=== PATIENT | female | born 1945 ===

== ENCOUNTER 2018-03-05 17:52 | Emergency (ER) | payer MEDICARE, OTHER ==
[2018-03-05] MEDS ORDERED: Albuterol-Ipratrop 3 mg / 0.5 (3 ml) UD INH STA (18:29)
[2018-03-05] MEDS ORDERED: guaiFENesin 200 mg/10 ml Syrup UD PO STA (18:29)
[2018-03-05 18:55] LABS: BASO % 0.5 % (0.0-2.0); EOS # 0.6 K/uL (0.0-0.7); EOS % 7.5 % (0.0-4.0); HEMOGLOBIN 13.2 g/dL (12.0-16.0); LYMPH # 1.7 K/uL (1.0-4.3); LYMPH % 22.5 % (20.0-40.0); MEAN CELL VOLUME 90.8 fl (81.0-99.0); MEAN CORPUSCULAR HEMOGLOBIN 30.4 pg (27.0-31.0); MEAN CORPUSCULAR HGB CONC 33.4 g/dL (33.0-37.0); MEAN PLATELET VOLUME 9.9 fl (7.2-11.7); MONO # 0.7 K/uL (0.0-0.8); MONO % 9.6 % (0.0-10.0); NEUT # 4.5 K/uL (1.8-7.0); NEUT % 59.9 % (50.0-75.0); RBC 4.35 Mil/uL (3.80-5.20); WHITE BLOOD COUNT 7.5 K/uL (4.8-10.8)
[2018-03-05] MEDS ORDERED: guaiFENesin 100 mg/5 ml Syrup UD ONE (19:00)
[2018-03-05] MEDS ORDERED: Albuterol-Ipratrop 3 mg / 0.5 (3 ml) UD ONE (19:01)
--- NOTE | 2018-03-05 19:06 | ED PDOC ---
HPI: CCC, URI, Sore Throat Time Seen by Provider: 03/05/18 18:00 Chief Complaint (Nursing): Headache Chief Complaint (Provider): Cough History Per: Patient, Family (daughter at bedside) History/Exam Limitations: no limitations Onset/Duration Of Symptoms: Days (x5) Current Symptoms Are (Timing): Still Present Additional Complaint(s): 73 year old female arrives to ED with daughter for an evaluation for wet cough, chills, and congestion ongoing for 5 days. She additionally reports a posterior headache (none now) and worsening bodyaches for the last 2 days. Daughter reports patient returned from [facility] on 02/16/18 but had no symptoms at the time. Patient denies any fever, chest pain, abdominal pain, nausea, vomiting, diarrhea or recent sick contacts. She reports taking OTC remedies but no medication taken today for relief. PMD: Dr. Otis Sanches Past Medical History Reviewed: Historical Data, Nursing Documentation, Vital Signs Vital Signs: Last Vital Signs Temp 98.6 F 03/05/18 19:47 Pulse 135 H 03/05/18 19:47 Resp 19 03/05/18 19:47 BP 135/59 L 03/05/18 19:47 Pulse Ox 97 03/05/18 19:50 - Medical History PMH: No Chronic Diseases - Surgical History Surgical History: Appendectomy - Family History Family History: States: Unknown Family Hx - Social History Current smoker - smoking cessation education provided: Yes (6-8 cigarettes/daily ) Alcohol: None Drugs: Denies - Home Medications Home Medications: Ambulatory Orders Medication Instructions Recorded Albuterol HFA [Ventolin HFA 90 2 puff IH [id number] #1 puff 11/28/16 mcg/actuation (8 g)] Azithromycin [Z-Bryson] 250 mg PO DAILY #6 tab 11/28/16 Cyclobenzaprine [Cyclobenzaprine 10 mg PO BID #15 tab 11/28/16 HCl] Ibuprofen [Motrin Tab] 600 mg PO Q6 #30 tab 11/28/16 Acetaminophen [Acetaminophen 8 650 mg PO Q8 PRN #21 tablet.er 03/05/18 Hour] Albuterol Sulfate [Ventolin Hfa] 1 puff IH Q4 #1 each 03/05/18 Azithromycin [Z-Bryson] 250 mg PO DAILY #6 tab 03/05/18 Benzonatate [Tessalon Perle] 100 mg PO Q8 PRN #21 capsule 03/05/18 - Allergies Allergies/Adverse Reactions: Allergies Allergy/AdvReac Type Severity Reaction Status Date / Time FISH Allergy ITCHING Verified 03/05/18 17:56 pineapple Allergy ITCHING Verified 03/05/18 17:56 Review of Systems ROS Statement: Except As Marked, All Systems Reviewed And Found Negative Constitutional: Positive for: Chills, Other (bodyaches). Negative for: Fever ENT: Positive for: Nose Congestion Cardiovascular: Negative for: Chest Pain Respiratory: Positive for: Cough (wet) Gastrointestinal: Negative for: Nausea, Vomiting, Abdominal Pain, Diarrhea Neurological: Positive for: Headache (posteriorly) Physical Exam - Reviewed Nursing Documentation Reviewed: Yes Vital Signs Reviewed: Yes - Physical Exam Comments: GENERAL APPEARANCE: Patient is awake, alert, oriented x 3, in no acute distress. Resting comfortably, nontoxic appearing. SKIN: Warm, dry; (-) cyanosis; (-) rash. HEAD: (-) scalp swelling or tenderness, (-) temporal artery tenderness. EYES: (-) conjunctival pallor, (-) scleral icterus. ENMT: Mucus membranes moist. Airway patent, (-) stridor. Pharynx: clear, uvula midline (-) erythema (-) exudate. Nares patent (-) rhinorrhea (-) sinus tenderness. TMs nonbulging and nonerythematous. NECK: Supple, FROM (-) tenderness, (-) stiffness, (-) meningismus, (-) lymphadenopathy. CHEST AND RESPIRATORY: left upper lobe with (+) rales, (+) rhonchi; breath sounds equal bilaterally. (-) wheezes or retractions. Respirations even and nonlabored. HEART AND CARDIOVASCULAR: (-) irregularity; (-) murmur ABDOMEN AND GI: Soft; (-) tenderness (-) guarding (-) distention (-) palpable mass. EXTREMITIES: (-) deformity. NEURO AND PSYCH: Mental status as above. powerplant operator: Pupils equal and reactive; EOMI and painless; (-) facial asymmetry; tongue midline. Smile symmetric. Strength symmetric. Gait steady, speech clear. - Laboratory Results Result Diagrams: 03/05/18 18:47 03/05/18 18:47 - ECG O2 Sat by Pulse Oximetry: 97 (RA) Pulse Ox Interpretation: Normal Medical Decision Making Medical Decision Making: Initial Impression: Cough and chills, r/o pneumonia Initial Plan: * EKG * BNP * CMP * Lact acid, plasma * Troponin I * CBC * CXR * Duoneb 3ml INH * Robitussin 200mg PO * Accucheck Time: 1848 --EKG: NSR at 62 BMP. No ectopy. QTC: 444 1925 Troponin < 0.01 BNP: 152 1935 CBC unremarkable. H&H stable. No elevation of WBCs. CMP grossly unremarkable. CO2 27. Lactic acid <1. CXR: (-) infiltrate (-) pneumothorax (-) effusion as read by Yazmin OAKLEY and Jacquelyn PANDA Patient notified a Radiologist will review the ED reading if any change in treatment is needed we will contact her. Given high suspicion of clinical pneumonia, Cipro 500mg PO ordered. 1950 On re-evaluation, patient reports improvement of symptoms. On exam, patient remains AAOx3, in no acute distress. Lungs clear to auscultation, cardiac RRR, abdomen soft, non-tender, repeat neuro exam shows no focal findings. Patient with no evidence of respiratory distress or hypoxia throughout ED visit. VSS, stable for discharge. Lab/Diagnostic results d/w the patient in great detail. Diagnosis of cough, chills, clinical pneumonia(CAP) d/w the patient. Based on history, exam and diagnostic results, plan will be for outpatient follow up with PMD without fail. Patient instructed to follow-up with pmd / referral provided / the clinic in 1- 2 days without fail. Advised to take medication as prescribed. Return to the emergency room at any time for any new or worsening symptoms. Patient states she fully agrees with and understands discharge instructions. States that she agrees with the plan and disposition. Verbalized and repeated discharge instructions and plan. I have given the patient opportunity to ask any additional questions. Scribe Attestation: Documented by Radha Clark, acting as a scribe for SANDRA Still. Provider Scribe Attestation: All medical record entries made by the Scribe were at my direction and personally dictated by me. I have reviewed the chart and agree that the record accurately reflects my personal performance of the history, physical exam, medical decision making, and the department course for this patient. I have also personally directed, reviewed, and agree with the discharge instructions and disposition. Disposition - Clinical Impression Clinical Impression: Community acquired pneumonia, Cough in adult, SOB (shortness of breath), Body aches, Headache - Patient ED Disposition Is Patient to be Admitted: No Counseled Patient/Family Regarding: Studies Performed, Diagnosis, Need For Followup, Rx Given - Disposition Referrals: Otis Sanches Jr., MD [Family Provider] - Disposition: Routine/Home Disposition Time: 19:50 Condition: STABLE Additional Instructions: FOLLOW UP WITH PMD IN 1-2 DAYS WITHOUT FAIL. RETURN TO ED WITH ANY NEW OR WORSENING SYMPTOMS. TAKE MEDICATIONS PRESCRIBED. The emergency medical care you received today was directed at your acute symptoms. If you were prescribed any medication, please fill it and take as directed. It may take several days for your symptoms to resolve. Return to the Emergency Department if your symptoms worsen, do not improve, or if you have any other problems. Please contact your doctor in 2 days for re-evaluation and follow up / or call one of the physicians/clinics you have been referred to that are listed on the Patient Visit Information form that is included in your discharge packet. Bring any paperwork you were given at discharge with you along with any medications you are taking to your follow up visit. Our treatment cannot replace ongoing medical care by a primary care provider (PCP) outside of the emergency department. Prescriptions: Acetaminophen [Acetaminophen 8 Hour] 650 mg PO Q8 PRN #21 tablet.er PRN Reason: PAIN, FEVER Albuterol Sulfate [Ventolin Hfa] 1 puff IH Q4 #1 each Azithromycin [Z-Bryson] 250 mg PO DAILY #6 tab Benzonatate [Tessalon Perle] 100 mg PO Q8 PRN #21 capsule PRN Reason: Cough Instructions: Cough in Adults, Headache, Adult, Shortness of Breath (Dyspnea) ( DC), Community-Acquired Pneumonia, Adult (DC) Forms: [employer] (Azeri) Print Language: [place]AST [place] - JESSIA Present On Arrival: None Results - Lab Results Lab Results: 03/05/18 03/05/18 03/05/18 19:45 18:47 18:47 WBC 7.5 RBC 4.35 Hgb 13.2 Hct 39.5 MCV 90.8 D MCH 30.4 MCHC 33.4 RDW 14.0 Plt Count 216 MPV 9.9 Neut % (Auto) 59.9 Lymph % (Auto) 22.5 Graves % (Auto) 9.6 Eos % (Auto) 7.5 H Baso % (Auto) 0.5 Neut # (Auto) 4.5 Lymph # (Auto) 1.7 Graves # (Auto) 0.7 Eos # (Auto) 0.6 Baso # (Auto) 0.0 Sodium Potassium Chloride Carbon Dioxide Anion Gap BUN Creatinine Est GFR ( Amer) Est GFR (Non-Af Amer) POC Glucose (mg/dL) 94 Random Glucose Lactic Acid 0.9 Calcium Total Bilirubin AST ALT Alkaline Phosphatase Troponin I NT-Pro-B Natriuret Pep Total Protein Albumin Globulin Albumin/Globulin Ratio 03/05/18 18:47 WBC RBC Hgb Hct MCV MCH MCHC RDW Plt Count MPV Neut % (Auto) Lymph % (Auto) Graves % (Auto) Eos % (Auto) Baso % (Auto) Neut # (Auto) Lymph # (Auto) Graves # (Auto) Eos # (Auto) Baso # (Auto) Sodium 141 Potassium 4.3 Chloride 105 Carbon Dioxide 27 Anion Gap 13 BUN 19 H Creatinine 0.6 L Est GFR ( Amer) > 60 Est GFR (Non-Af Amer) > 60 POC Glucose (mg/dL) Random Glucose 107 H Lactic Acid Calcium 8.8 Total Bilirubin 0.4 AST 32 ALT 28 Alkaline Phosphatase 53 Troponin I < 0.0120 NT-Pro-B Natriuret Pep 152 Total Protein 7.4 Albumin 4.1 Globulin 3.3 Albumin/Globulin Ratio 1.2
[2018-03-05 19:07] LABS: ALB/GLOB RATIO 1.2 (1.0-2.1); ALBUMIN 4.1 g/dL (3.5-5.0); ALT/SGPT 28 U/L (9-52); AST/SGOT 32 U/L (14-36); BLOOD UREA NITROGEN 19 mg/dl (7-17); CALCIUM 8.8 mg/dL (8.4-10.2); GFR AFRICAN-AMERICAN > 60; GFR NON-AFRICAN AMERICAN > 60
[2018-03-05 19:14] LABS: B-TYPE NATRIURETIC PEPTIDE 152 pg/ml (0-900)
[2018-03-05 19:47] VITALS: BP 135/59; RESP 19; TEMP 98.6
[2018-03-05 19:48] VITALS: O2SAT 97
[2018-03-06 02:03] VITALS: PULSE 135
--- NOTE | 2018-03-06 07:15 | CARD ---
APPROVED REPORT Date of service: 03/05/2018 <Conclusion> Normal sinus rhythm T wave abnormality, consider anterior ischemia Abnormal ECG
--- NOTE | 2018-03-06 10:18 | RAD ---
HISTORY: COMPARISON: 11/28/2026. TECHNIQUE: Chest PA and lateral FINDINGS: LINES AND TUBES: None. LUNG AND PLEURA: The lungs are well inflated and clear. No pleural effusion or pneumothorax. HEART AND MEDIASTINUM: The heart is not enlarged. The hilar and mediastinal contours are within normal limits. SKELETAL STRUCTURES: The bony structures are within normal limits for the patient's age. VISUALIZED UPPER ABDOMEN: Normal. OTHER FINDINGS: None. IMPRESSION: No active pulmonary disease.
== END 2018-03-05 20:51 | disposition home or self-care (01) ==
LOC: H.ER 17:52
DX: J18.9 Pneumonia, unspecified organism (principal); R05 Cough; R06.02 Shortness of breath; R51 Headache; M79.1 Myalgia

== ENCOUNTER 2018-07-25 13:11 | Emergency (ER) | payer MEDICARE, OTHER ==
--- NOTE | 2018-07-25 15:15 | CT ---
Date of service: 07/25/2018 PROCEDURE: CT Chest without contrast HISTORY: chest wall contusion, ecchymosis right axilla COMPARISON: None available. TECHNIQUE: Contiguous axial images were obtained through the chest without intravenous contrast enhancement. Sagittal and coronal reconstructions were performed. Radiation dose: Total exam DLP = 279.9 mGy-cm. This CT exam was performed using one or more of the following dose reduction techniques: Automated exposure control, adjustment of the mA and/or kV according to patient size, and/or use of iterative reconstruction technique. FINDINGS: LUNGS: In the right middle lobe there are 2 5 mm nodules solid-appearing with some calcification associated with them. The chronicity is unknown. ([place] series 3, image 56 a 4 to 5 mm left lower lobe posteromedial nodule in the smaller nodule adjacent to it is also noted. This is seen series 3, image 61 again appearance is nonspecific and its chronicity is unknown. Small pleural based sub cm nodular thickening left lung base level series 3, image 54. Some calcified probable pleural thickening calcified pleural plaque is is likely present on axial series 3, image 29. This also some thin scattered posterior pleural thickening trace subpleural linear areas of the atelectasis and/or scarring in the upper lobes is also suggested. Visualized airway clear MEDIASTINUM: Unremarkable thoracic aorta. No aneurysm. Normal sized heart. Main pulmonary artery unremarkable. No vascular congestion. No lymphadenopathy. There is presence of aortic atherosclerotic calcification and mural plaque on cross sectional studies. PLEURA: No pleural fluid. No pneumothorax. BONES: No fracture. No destructive lesion. UPPER ABDOMEN: Grossly unremarkable. OTHER FINDINGS: There is minimal right axillary and right lateral chest wall vague opacity compatible with minimal edema and/or prior trauma in some of the right sided coastal muscles are asymmetrically prominent-however no differential density to suggest an intramuscular hematoma suggested. No subcutaneous hematoma seen. No gross right rib fractures appreciated either. IMPRESSION: No significant appearing right chest wall hematoma noted. Minimal changes in the subcutaneous fat as noted above. Some of the Bilateral sub cm pulmonary nodules some of which are calcified-consider follow-up CT chest imaging in 6 months and/or consultation with behavioral geneticist regarding interval follow-up recommendations.
--- NOTE | 2018-07-25 16:02 | ED PDOC ---
HPI: General Adult Time Seen by Provider: 07/25/18 13:48 Chief Complaint (Nursing): Trauma Chief Complaint (Provider): Chest wall injury, pain after fall History Per: Patient History/Exam Limitations: no limitations Onset/Duration Of Symptoms: Days Have you had recent travel within the past 21 days to any of the following countries: [place], [place], [place] or [place]?: No Current Symptoms Are (Timing): Still Present Additional Complaint(s): 73 yo female with no medical problems presents for evaluation of right upper chest pain/axilla pain after fall in the shower 3 days ago. Pt states she slipped due to wet feet and fell hitting the right sided of her chest and axilla against the side of tube. no LOC, dizziness, chest pain etc. causing fall. Pt reports bruising of the right sided chest wall. Pt reports pain worse with movement, touching area and breathing. No medications for pain at home Past Medical History Reviewed: Historical Data, Nursing Documentation, Vital Signs Vital Signs: Last Vital Signs Temp 97.8 F 07/25/18 13:25 Pulse 54 L 07/25/18 13:25 Resp 18 07/25/18 13:25 BP 125/58 L 07/25/18 13:25 Pulse Ox 96 07/25/18 13:25 - Medical History PMH: No Chronic Diseases - Surgical History Surgical History: Appendectomy - Family History Family History: States: Unknown Family Hx - Living Arrangements Living Arrangements: With Family - Social History Current smoker - smoking cessation education provided: No - Home Medications Home Medications: Ambulatory Orders Medication Instructions Recorded Albuterol HFA [Ventolin HFA 90 2 puff IH [id number] #1 puff 11/28/16 mcg/actuation (8 g)] Azithromycin [Z-Bryson] 250 mg PO DAILY #6 tab 11/28/16 Cyclobenzaprine [Cyclobenzaprine 10 mg PO BID #15 tab 11/28/16 HCl] Ibuprofen [Motrin Tab] 600 mg PO Q6 #30 tab 11/28/16 Acetaminophen [Acetaminophen 8 650 mg PO Q8 PRN #21 tablet.er 03/05/18 Hour] Albuterol Sulfate [Ventolin Hfa] 1 puff IH Q4 #1 each 03/05/18 Azithromycin [Z-Bryson] 250 mg PO DAILY #6 tab 03/05/18 Benzonatate [Tessalon Perle] 100 mg PO Q8 PRN #21 capsule 03/05/18 - Allergies Allergies/Adverse Reactions: Allergies Allergy/AdvReac Type Severity Reaction Status Date / Time FISH Allergy ITCHING Verified 07/25/18 13:24 pineapple Allergy ITCHING Verified 07/25/18 13:24 Review of Systems ROS Statement: Except As Marked, All Systems Reviewed And Found Negative Constitutional: Negative for: Fever, Chills Cardiovascular: Positive for: Chest Pain (Right sided chest wall pain). Negative for: Palpitations Respiratory: Negative for: Cough, Shortness of Breath Gastrointestinal: Negative for: Nausea, Vomiting, Abdominal Pain, Diarrhea Genitourinary Female: Negative for: Dysuria Skin: Negative for: Rash Neurological: Negative for: Weakness, Numbness Physical Exam - Reviewed Nursing Documentation Reviewed: Yes Vital Signs Reviewed: Yes - Physical Exam Appears: Positive for: Well, Non-toxic, No Acute Distress Head Exam: Positive for: ATRAUMATIC, NORMAL INSPECTION, NORMOCEPHALIC Skin: Positive for: Normal Color, Warm, DRY Eye Exam: Positive for: Normal appearance ENT: Positive for: Normal ENT Inspection Neck: Positive for: Normal, Painless ROM Cardiovascular/Chest: Positive for: Regular Rate, Rhythm Respiratory: Positive for: Normal Breath Sounds, Other ((+) right upper chest wall tenderness, ecchymosis noted in axilla ). Negative for: Accessory Muscle Use, Respiratory Distress Back: Positive for: Normal Inspection Extremity: Positive for: Normal ROM Neurologic/Psych: Positive for: Alert, Oriented - ECG O2 Sat by Pulse Oximetry: 96 Pulse Ox Interpretation: Normal Medical Decision Making Medical Decision Making: CT without acute abnormalities, discussed f/u with PMD. Results given to patient. Disposition - Clinical Impression Clinical Impression: Chest wall contusion - Patient ED Disposition Is Patient to be Admitted: No Counseled Patient/Family Regarding: Diagnosis, Need For Followup - Disposition Disposition: Routine/Home Disposition Time: 16:06 Condition: GOOD Instructions: Contusion (DC)
[2018-07-25 17:02] VITALS: BP 120/60; PULSE 78; RESP 19; TEMP 97.6; O2SAT 98
--- NOTE | 2018-07-26 23:46 | CARD ---
APPROVED REPORT Date of service: 07/25/2018 EKG Measurement Heart [id number] <Conclusion> Sinus bradycardia ST & T wave abnormality, consider anterior ischemia Abnormal ECG
== END 2018-07-25 17:02 | disposition home or self-care (01) ==
LOC: H.ER 13:11
DX: S20.219A Contusion of unspecified front wall of thorax, initial encounter (principal); W01.10XA Fall on same level from slipping, tripping and stumbling with subsequent striking against unspecified object, initial encounter; Y93.E1 Activity, personal bathing and showering